=== PATIENT | male | born 2000 | race Caucasian/White ===

== ENCOUNTER 2020-01-06 18:52 | Observation (INO) | payer OTHER ==
[~2020-01-06] VITALS: Ht 175.3 cm; Wt 99.8 kg
[2020-01-06 19:14] VITALS: BP 152/90
[2020-01-06] MEDS ORDERED: LEXAPRO20 MG PO (19:17)
[2020-01-06 19:18] LABS: ABSOLUTE EOSINOPHILS 0.1 thou/uL (0.0-0.7); ABSOLUTE MONOCYTES 0.5 thou/uL (0.0-1.2); ABSOLUTE NEUTROPHILS 3.5 thou/uL (1.6-8.1); BASOPHILS 0.4 %; EOSINOPHILS 2.2 %; HEMOGLOBIN 14.8 gm/dL (14.0-18.0); LYMPHOCYTES 32.9 %; MCH 28.7 pg (26.0-34.0); MCHC 34.5 g/dL (28.0-37.0); MCV 83.3 fL (80.0-100.0); MONOCYTES 7.7 %; MPV 9.1 fl. (7.2-11.1); NUCLEATED RBCS 0 /100WBC; PLATELET COUNT* 202 thou/uL (150-400); POLYS 56.8 %; RBC 5.16 mil/uL (4.50-6.00); RDW-CV 13.4 % (10.5-14.5); WBC 6.1 thou/uL (4.0-11.0)
[2020-01-06 19:29] LABS: CALCIUM 8.9 mg/dL (8.5-10.1); CREATININE 0.9 mg/dL (0.6-1.3); POTASSIUM 3.9 mmol/L (3.5-5.1)
[2020-01-06 19:33] LABS: MAGNESIUM 2.1 mg/dL (1.8-2.4); TOTAL BILIRUBIN 0.3 mg/dL (<0.1-1.0); TOTAL PROTEIN 7.2 g/dL (6.4-8.2)
[2020-01-07] VITALS (7 sets, daily range): BP systolic 95–118; BP diastolic 47–61
[2020-01-07 08:54] LABS: CHOLESTEROL 157 mg/dL (<200); HDL CHOLESTEROL 47 mg/dL (>40); LDL CHOLESTEROL 100 mg/dL (<100); TC:HDL 3.3 Ratio (Not establshd); TRIGLYCERIDE 51 mg/dL (<150); VLDL 10 mg/dL (<40)
[2020-01-07 08:55] LABS: SERUM ASSESSMENT Clear
--- NOTE | 2020-01-07 11:33 | EKG ---
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: [place] : 2000 Requested By: Arash Collins Order Number: [id number] MD: Jay Bernabe Measurements Intervals Steele Rate: 62 P: 32 WI: 156 QRS: 68 QRSD: 104 T: 43 QT: 387 QTc: 393 Interpretive Statements Sinus rhythm ST elev, probable normal early repol pattern No previous ECG available for comparison Electronically Signed On 01-07-2020 11:33:[address] [employer] by Jay Bernabe [email or web address] <ELECTRONICALLY SIGNED> By: Jay Bernabe MD, [facility] 01/07/20 1133 2149 2149 Jay Bernabe MD, [facility] /EPI
--- NOTE | 2020-01-07 16:22 | 2DMMODE ---
[place] [address] 2 D/M-MODE ECHOCARDIOGRAM Name: BING MARION Chuck Room: [address] [place]#: [id number] Admission: 01/06/20 Attend Phys: Orville Roper, Discharge: Date of : [birth year] Date of Service: 01/07/20 1622 Report #: [id number] THIS REPORT FOR: cc: FAM - No family physician/PCP FAM - No family physician/PCP Jay Bernabe MD [facility] ~ APPROVED REPORT Study performed: 01/07/2020 14:28:26 EXAM: Comprehensive 2D, Doppler, and color-flow Echocardiogram Patient Location: Bedside BSA: 2.15 HR: 54 bpm BP: 95/52 mmHg Other Information Study Quality: Adequate Indications CVA/TIA Echo Enhancing Agent Indication: Rule out Shunt Agent(s) / Amount(s) Used: Agitated Saline cc 2D Dimensions IVSd: 11.22 (7-11mm) LVOT Diam: 19.18 (18-24mm) LVDd: 44.76 mm PWd: 10.15 (7-11mm) Ascending Ao: 26.13 (22-36mm) LVDs: 33.23 (25-40mm) Aortic Root: 25.03 mm Volumes Left Atrial Volume (Systole) LA ESV Index: 16.70 mL/m2 Aortic Valve AoV Peak Marbin.: 1.24 m/s AO Peak Gr.: 6.11 mmHg LVOT Max P.52 mmHg AO Mean Gr.: 3.41 mmHg LVOT Mean P.11 mmHg LVOT Max V: 1.06 m/s AO V2 VTI: 21.76 cm LVOT Mean V: 0.66 m/[place] [address] 2 D/M-MODE ECHOCARDIOGRAM Name: BING MARION Room: [address] [place]#: [id number] Admission: 01/06/20 Attend Phys: Orville Roper, Discharge: Date of : [birth year] Date of Service: 01/07/20 1622 Report #: [id number] JEAN CARLOS (VTI): 2.54 cm2 LVOT V1 VTI: 19.14 cm Mitral Valve E/A Ratio: 1.80 MV Decel. Time: 219.63 ms MV E Max Marbin.: 0.91 m/s MV PHT: 63.69 ms MVA (PHT): 3.45 cm2 TDI E/Lateral E': 5.06 E/Medial E': 5.06 Medial E' Marbin.: 0.18 m/s Lateral E' Marbin.: 0.18 m/s Pulmonary Valve PV Peak Marbin.: 1.21 m/s PV Peak Gr.: 5.87 mmHg Left Ventricle The left ventricle is normal size. There is normal LV segmental wall motion. There is normal left ventricular wall thickness. Left ventricular systolic function is normal. The left ventricular ejection fraction is within the normal range. LVEF is 60-65%. Right Ventricle The right ventricle is normal size. The right ventricular systolic function is normal. Atria The left atrium size is normal. Injection of bubbles documented no interatrial shunt. The right atrium size is normal. Aortic Valve The aortic valve is normal in structure. No aortic regurgitation is present. There is no aortic valvular stenosis. Mitral Valve The mitral valve is normal in structure. There is no mitral valve regurgitation noted. No evidence of mitral valve stenosis. Tricuspid Valve The tricuspid valve is normal in structure. There is trace tricuspid valve regurgitation noted. Pulmonic Valve The pulmonary valve is normal in structure. There is no pulmonic [place]vular [place] [address] 2 D/M-MODE ECHOCARDIOGRAM Name: BING MARION Room: [address] M.R.#: [id number] Admission: 01/06/20 Attend Phys: Orville Roper, Discharge: Date of : 89 Date of Service: 01/07/20 1622 Report #: [id number] Great Vessels The aortic root is normal in size. IVC is normal in size and collapses >50% with inspiration. Pericardium There is no pericardial effusion. <Conclusion> Left ventricular systolic function is normal. The left ventricular ejection fraction is within the normal range. Injection of bubbles documented no interatrial shunt. <ELECTRONICALLY SIGNED> By: Jay Bernabe MD, FACC 01/07/20 162 21 21 Jay Bernabe MD, FACC /INF
--- NOTE | 2020-01-07 17:20 | EKG ---
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 : 2000 Requested By: Arash Collins Order Number: [id number] MD: Lenny Mayo Measurements Intervals Abrams Rate: 67 P: 35 KS: 162 QRS: 67 QRSD: 105 T: 47 QT: 375 QTc: 396 Interpretive Statements Sinus rhythm ST elev, probable normal early repol pattern Baseline wander in lead(s) II,III,aVF No previous ECG available for comparison Electronically Signed On 01-07-2020 17:20:40 [employer] by Lenny Mayo [email or web address] <ELECTRONICALLY SIGNED> By: Lenny Mayo MD, FACC 01/07/20 1720 1859 1859 Lenny Mayo MD, FAC /EPI
--- NOTE | 2020-01-07 18:43 | CON ---
[address] [address] CONSULTATION Name: BING MARION Room: [place] [address] ADM [facility] [place]#: [id number] Admission: 01/06/20 Attend Phys: Orville Roper MD Discharge: Date of : [birth year] Report #: [id number] THIS REPORT FOR: //name// cc: RANGEL - No family physician/PCP RANGEL - No family physician/PCP ~ DATE OF SERVICE: 01/07/2020 HISTORY OF PRESENT ILLNESS: This is a 19-year-old male patient who was evaluated by me for pretty unusual symptoms. I talked to Dr. Collins and reviewed his note and I subsequently talked to Dr. Cabello, the admitting doctor. He had complained of some chest pain and right arm and leg numbness and tingling. He had some headache following it. Since he had a chest pain associated with focal neurological deficit, CT of the chest was done to look for any dissection. Apparently, the images were suboptimal, but he also had a CT angiogram of the head and neck, they were unremarkable. He has normal variations, but nothing pathological. Review of systems indicates that the patient talks very slowly. He says he does not have any history of migraine. He does not think he is under stress. He said he was diagnosed with ADD, but he was in a special class for stuttering. Although, he does not think he is anxious, but he is on Lexapro. His chest pain is better. His neurological symptoms have resolved. REVIEW OF SYSTEMS: A 14-point review of system was carried out. This patient had chest pain,neurological deficit, which has resolved. PHYSICAL EXAMINATION: The patient talks in unusual fashion when I asked him what month it is, he takes long time to tell. I had talked to Dr. Collins, the Emergency Room physician and he has indicated that the father indicated that was his baseline. He knew what hospital he was in. When I asked him who the president is, he says that has not decided yet and we will find out. Cranial nerve examination 2-12 is unremarkable. Neuromuscular examination is done for muscle, reflexes, sensation and tone was unremarkable. There is no cerebellar sign. I could not look at the patient's fundus. Cardiac and respiratory examinations appears noncontributory. There is no meningeal sign. There is no carotid bruit in this patient. LABORATORY DATA: He is an obese individual whose CBC and CMP is unremarkable. His TSH and vitamin B12 is unremarkable. His LDL is slightly high. IMAGING: As described above. IMPRESSION AND PLAN: It is unlikely that there is any neurological etiology for the patient's symptoms. I have ordered an MRI and EEG in this patient. We will see if it can be done today. If they are also normal, it will make it even less likely that it is neurological in origin and I will not suggest any further workup in this patient. Main workup, which is necessary in this patient is non-neurological causes including chest causes, cardiac [place] [address] CONSULTATION Name: BING MARION Room: [address] [place]#: [id number] Admission: 01/06/20 Attend Phys: Orville Roper MD Discharge: Date of : [birth year] Report #: [id number] defer that evaluation and management to hospitalists or anybody else he will like to consult. We will see if MRI and an EEG can be done today. If they are normal, as I mentioned, I do not recommend any further neurological workup and focusing on evaluation and workup of systemic causes including cardiac, chest, etc., which will be deferred to hospitalist. I will look at the MRI and an EEG once it is done and will leave an addendum. Otherwise, I do not plan to follow up this patient, but please call if there is any question or if any further neurological followup is needed. Addenum. This adendum is being added at the time of signing this note. Patient's MRI brain and EEG was normal. It is unlikely that there is any neurological etiology for the patient's symptoms. I will suggest working up the patient for known neurological etiologies including cardiac, cardiothoracic, and other known neurological etiologies. I will defer that evaluation and management to the hospitalist. Dr. Cabello Is the hospitalist and I have discussed patient with him multiple times.Neurologically nothing specific to add at this time. I will sign off. I did tell him not to drive for the time being until released by his family care or other consultants who will evaluate and take care of. Thank you very much for this referral. <ELECTRONICALLY SIGNED> By: Yazan Wray MD 01/07/20 1843 1444 [id number] Wray MD /kevin
--- NOTE | 2020-01-11 12:47 | EEG ---
[address] [address] EEG STUDY REPORT Name: BING MARION Room: [address]#: [id number] Admission: 01/06/20 Attend Phys: Orville Roper MD Discharge: 01/07/20 Date of : [birth year] Report #: [id number] THIS REPORT FOR: //name// CC: Orville Roper [facility] physician/PCP The patient is being evaluated for the possibility of seizure. EEG was done by placing the electrode by standard 10-20 system of electrode placement. Both referential and sequential montages were used for recording. Background activity in this patient's EEG is about 8-9 Hz and 30 microvolts. The patient goes to sleep that is associated with bilaterally symmetrical sleep spindle and vertex sharp waves. Photic stimulation is unremarkable. Throughout the record, no active epileptiform activity was noticed. IMPRESSION: This patient's EEG is within normal limits and does not demonstrate any active epileptiform activity. Thank you very much for this referral. <ELECTRONICALLY SIGNED> By: Yazan Wray MD 01/11/20 1247 1838 1904Plupis Wray MD /nt
== END 2020-01-07 20:25 | disposition home or self-care (01) ==
LOC: M.ERS 18:52 → M.TBA-ER 22:53
PROVIDERS: Emergency Medicine Emergency Medical Services; Internal Medicine; ADMIT Internal Medicine; ATTEND Internal Medicine
DX: R55 Syncope and collapse (principal); R07.89 Other chest pain; I10 Essential (primary) hypertension; E66.9 Obesity, unspecified; F32.9 Major depressive disorder, single episode, unspecified; Z79.899 Other long term (current) drug therapy